=== PATIENT | female | born 1950 | race Caucasian/White ===

== ENCOUNTER 2017-06-09 12:43 | Outpatient (CLI) | payer MEDICARE, MEDICAID ==
--- NOTE | 2017-06-09 13:37 | RAD ---
CERVICAL SPINE SERIES: HISTORY: Followup surgery. COMPARISON: 05/26/16 exam. FINDINGS: Extensive postoperative changes of the spine with anterior cervical fusion and posterior facets exte nding from C4 to C7. Overall appearance is stable as compared to the prior exam. IMPRESSION: Stable exam. POS: [facility]
== END 2017-06-09 12:44 | disposition home or self-care (01) ==
LOC: TBSIIMAG 12:43
PROVIDERS: ATTEND Neurological Surgery
DX: M50.30 Other cervical disc degeneration, unspecified cervical region (principal)
CPT/HCPCS: 72040